=== PATIENT | female | born 1965 | race Caucasian/White ===

== ENCOUNTER 2019-10-02 17:37 | Observation (INO) | payer BC ==
[~2019-10-02] VITALS: Ht 167.6 cm; Wt 106.5 kg
[~2019-10-02 17:37] MED LIST: DIAZ5TAB PO; DICL100G15 TOP; HYDR-4383 PO; NAPR-1154 PO
[2019-10-02 18:29] LABS: BASOPHILS # (AUTO) 0.1 X10'3 (0-0.2); BASOPHILS % (AUTO) 0.5 % (0-1); EOSINOPHILS # (AUTO) 0.1 X10'3 (0-0.9); EOSINOPHILS % (AUTO) 1.1 % (0-6); HEMATOCRIT 42.4 % (35.0-45.0); HEMOGLOBIN 13.9 g/dl (12.0-16.0); MEAN CORPUSCULAR HEMOGLOBIN 28.7 PG (27.0-31.0); MEAN CORPUSCULAR HGB CONC 32.8 g/dL (33.0-36.5); MEAN CORPUSCULAR VOLUME 87.5 FL (78-98); MEAN PLATELET VOLUME 7.8 FL (7.4-10.4); MONOCYTES # (AUTO) 0.7 X10'3 (0-0.9); MONOCYTES % (AUTO) 6.5 % (2-12); NEUTROPHILS # (AUTO) 6.9 X10'3 (1.8-7.7); NEUTROPHILS % (AUTO) 63.9 % (42-75); PLATELET COUNT 329 X10'3 (140-440); RED BLOOD COUNT 4.84 X10'6 (4.20-5.60); RED CELL DISTRIBUTION WIDTH 14.9 % (11.5-14.5); WHITE BLOOD COUNT 10.7 X10'3 (4.5-11.0)
[2019-10-02 18:49] LABS: ALANINE AMINOTRANSFERASE 18 U/L (12-78); ALBUMIN 3.8 G/DL (3.4-5.0); ALBUMIN/GLOBULIN RATIO 0.8 (1.1-1.5); ALKALINE PHOSPHATASE 126 IU/L (46-116); ANION GAP 10 (8-16); ASPARTATE AMINO TRANSFERASE 10 U/L (10-37); BILIRUBIN,TOTAL 0.2 MG/DL (0.1-1.0); BLOOD UREA NITROGEN 15 MG/DL (7-18); BUN/CREATININE RATIO 14.3 (6.6-38.0); CALCIUM 8.9 MG/DL (8.5-10.1); CHLORIDE 101 MMOL/L (99-107); CREATININE 1.05 MG/DL (0.40-0.90); GLUCOSE 82 MG/DL (70-104); SODIUM 139 MMOL/L (135-145); TOTAL CARBON DIOXIDE 28.2 MMOL/L (24-32); TOTAL PROTEIN 8.4 G/DL (6.4-8.2); eGFR 54 ML/MIN
[2019-10-02 18:54] LABS: POTASSIUM 2.9 MMOL/L (3.5-5.1)
[2019-10-02] MEDS ORDERED: potassium chloride 10mEq ER tablet PO STA (19:41)
[2019-10-02] MEDS: normal saline 1000ml 1,000 ML IV SCH (21:52)
[2019-10-02] MEDS ORDERED: metoprolol tartrate 1mg/ml inj IV PRN (21:55)
[2019-10-02] MEDS ORDERED: potassium Cl 20 mEq SR tablet PO PRN ×2 (21:55)
[2019-10-02] MEDS ORDERED: regadenoson 0.4mg/5ml syringe IV PRN (21:55)
[2019-10-02] MEDS ORDERED: ondansetron/PF 4mg/2ml inj IV PRN (21:55)
[2019-10-02] MEDS ORDERED: magnesium 4gm in 100ml NS 100 ML IV PRN (21:55)
[2019-10-02] MEDS ORDERED: nitroGLYCERIN 0.4mg SUBLingual tab SL PRN (21:55)
[2019-10-02] MEDS ORDERED: potassium CL 10mEq/100ml bag 100 ML IV PRN ×2 (21:55)
[2019-10-02] MEDS ORDERED: acetaminophen 325mg tablet PO PRN (21:55)
[2019-10-02] MEDS ORDERED: mag hydrox/Alum hydrox/simeth 30ml oral suspension PO PRN (21:55)
[2019-10-02] MEDS ORDERED: aminophylline 250mg/10ml inj. IV PRN (21:55)
[2019-10-02] MEDS ORDERED: magnesium hydroxide 30ml (MOM) UD suspension PO PRN (21:55)
[2019-10-02] MEDS ORDERED: magnesium 2GM in 50ml NS 50 ML IV PRN (21:55)
[2019-10-02] MEDS ORDERED: NO HOME MEDS (22:23)
--- NOTE | 2019-10-02 22:49 | NUR ---
Patient in room ED 3. I have received report from Akua RICARDO and had the opportunity to ask questions and assume patient care.
--- NOTE | 2019-10-02 22:55 | NUR ---
Patient arrived on unit. Telemetry applied, MRSA swab obtained, two RN skin check done. vital signs obtained -79 HR,98.5, 93%, RR 20, 143/71 and no pain. Patient assessed and made comfortable. Will continue to assess and monitor closely.
[2019-10-03] VITALS (12 sets, daily range): BP systolic 131–159; BP diastolic 61–76
[2019-10-03 06:06] LABS: BASOPHILS % (AUTO) 0.6 % (0-1); EOSINOPHILS # (AUTO) 0.1 X10'3 (0-0.9); EOSINOPHILS % (AUTO) 1.3 % (0-6); HEMATOCRIT 39.4 % (35.0-45.0); HEMOGLOBIN 12.8 g/dl (12.0-16.0); LYMPHOCYTES # (AUTO) 2.2 X10'3 (1.1-4.8); LYMPHOCYTES % (AUTO) 31.7 % (21-51); MEAN CORPUSCULAR HGB CONC 32.4 g/dL (33.0-36.5); MEAN CORPUSCULAR VOLUME 86.2 FL (78-98); MEAN PLATELET VOLUME 7.8 FL (7.4-10.4); MONOCYTES # (AUTO) 0.5 X10'3 (0-0.9); NEUTROPHILS # (AUTO) 4.1 X10'3 (1.8-7.7); NEUTROPHILS % (AUTO) 59.4 % (42-75); PLATELET COUNT 279 X10'3 (140-440); RED BLOOD COUNT 4.57 X10'6 (4.20-5.60); RED CELL DISTRIBUTION WIDTH 14.6 % (11.5-14.5); WHITE BLOOD COUNT 6.9 X10'3 (4.5-11.0)
[2019-10-03 06:29] LABS: ALANINE AMINOTRANSFERASE 14 U/L (12-78); ALBUMIN 3.1 G/DL (3.4-5.0); ALBUMIN/GLOBULIN RATIO 0.8 (1.1-1.5); ALKALINE PHOSPHATASE 103 IU/L (46-116); ANION GAP 5 (8-16); ASPARTATE AMINO TRANSFERASE 9 U/L (10-37); BILIRUBIN,TOTAL 0.3 MG/DL (0.1-1.0); BLOOD UREA NITROGEN 14 MG/DL (7-18); BUN/CREATININE RATIO 16.9 (6.6-38.0); CALCIUM 8.6 MG/DL (8.5-10.1); CHLORIDE 107 MMOL/L (99-107); CREATININE 0.83 MG/DL (0.40-0.90); GLUCOSE 99 MG/DL (70-104); POTASSIUM 4.1 MMOL/L (3.5-5.1); SODIUM 141 MMOL/L (135-145); TOTAL CARBON DIOXIDE 29.4 MMOL/L (24-32); eGFR 71 ML/MIN
[2019-10-03 06:31] LABS: CHOL/HDL RATIO 3.8 (0.00-4.99); CHOLESTEROL 180 MG/DL (0-200); HDL CHOLESTEROL 48 MG/DL (35-60); LDL CHOLESTEROL 118 MG/DL (50-100); MAGNESIUM 2.4 MG/DL (1.5-2.4); TRIGLYCERIDES 72 MG/DL (20-135)
--- NOTE | 2019-10-03 06:37 | NUR ---
Problems reprioritized. Patient report given, questions answered & plan of care reviewed with Irene RICARDO.
[2019-10-03] MEDS: normal saline 1000ml 1,000 ML IV SCH (07:52)
[2019-10-03] MEDS ORDERED: enoxaparin 40mg/0.4ml syringe SQ SCH (08:00)
[2019-10-03] MEDS ORDERED: K and/or MAG REPLACEMENT MC SCH (08:00)
--- NOTE | 2019-10-03 12:06 | NUR ---
PAGER ID: [phone] MESSAGE: [id number] [address] Landeros Has no diet ordered. Stress test negative. LVEF 65%. May I order heart healthy diet? Irene [phone]
[2019-10-03] MEDS ORDERED: PANT40TA4 PO (12:40)
[2019-10-03] MEDS ORDERED: LISI-604 PO (12:43)
--- NOTE | 2019-10-03 15:26 | NUR ---
Per MD orders patient stable for discharge home. New prescriptions called in to pharmacy of preference. Discharge packet reviewed at bedside and all questions answered to patient satisfaction. PIV discontinued cannula intact. Tele monitoring discontinued. All belongings sent with patient. Ambulated to private vehicle accompanied by nurse on duty.
[2019-10-04] MEDS ORDERED: enoxaparin 30mg/0.3ml syringe SUBCUT SCH (08:00)
== END 2019-10-03 15:24 | disposition home or self-care (01) ==
LOC: ER 17:38 → ED HOLD 21:52 → PCU 3S 23:30
PROVIDERS: ADMIT Family Medicine; ATTEND Internal Medicine
DX: I47.2 Ventricular tachycardia (principal); E06.3 Autoimmune thyroiditis; E87.6 Hypokalemia; I49.3 Ventricular premature depolarization; I49.9 Cardiac arrhythmia, unspecified
CPT/HCPCS: 36415; 71045; 78452; 80053; 80061; 83735; 83880; 84443; 84484; 85025; 87081; 93005; 93017; 93306; 96372; 97161; 97530; 99285; A9500; G0378; J2785; J1650

== ENCOUNTER 2019-12-17 06:15 | Day surgery (SDC) | payer BC ==
[2019-12-17] VITALS (15 sets, daily range): BP systolic 121–173; BP diastolic 69–98
[~2019-12-17] VITALS: Ht 167.6 cm; Wt 108.3 kg
[~2019-12-17 06:15] MED LIST changes: -DIAZ5TAB PO; -DICL100G15 TOP; -HYDR-4383 PO; +LISI-604 PO; -NAPR-1154 PO; +PANT40TA54 PO
[2019-12-17] MEDS ORDERED: LORazepam 0.5 MG tablet PO PRN (06:40)
[2019-12-17] MEDS ORDERED: normal saline 1,000 ML IV SCH ×2 (06:40→10:15)
[2019-12-17] MEDS ORDERED: LIDOcaine/PRILOcaine 5gm cream TP ONE (06:40)
[2019-12-17] MEDS ORDERED: diphenhydrAMINE 25mg capsule PO PRN (06:40)
[2019-12-17] MEDS ORDERED: MULT-1133 (06:59)
[2019-12-17] MEDS ORDERED: [UNRECOGNIZED DRUG - CODE] (06:59)
[2019-12-17] MEDS ORDERED: CARV3.12 PO (06:59)
[2019-12-17] MEDS ORDERED: SUPER C COMPLEX (06:59)
[2019-12-17] MEDS ORDERED: CHOL100046 PO (06:59)
[2019-12-17 07:19] LABS: BASOPHILS % (AUTO) 0.6 % (0-1); EOSINOPHILS # (AUTO) 0.1 X10'3 (0-0.9); EOSINOPHILS % (AUTO) 1.9 % (0-6); HEMATOCRIT 40.9 % (35.0-45.0); HEMOGLOBIN 13.6 g/dl (12.0-16.0); LYMPHOCYTES # (AUTO) 1.7 X10'3 (1.1-4.8); LYMPHOCYTES % (AUTO) 27.9 % (21-51); MEAN CORPUSCULAR HEMOGLOBIN 28.5 PG (27.0-31.0); MEAN CORPUSCULAR HGB CONC 33.2 g/dL (33.0-36.5); MEAN CORPUSCULAR VOLUME 85.9 FL (78-98); MEAN PLATELET VOLUME 7.9 FL (7.4-10.4); MONOCYTES # (AUTO) 0.5 X10'3 (0-0.9); MONOCYTES % (AUTO) 8.7 % (2-12); NEUTROPHILS # (AUTO) 3.8 X10'3 (1.8-7.7); NEUTROPHILS % (AUTO) 60.9 % (42-75); PLATELET COUNT 298 X10'3 (140-440); RED BLOOD COUNT 4.76 X10'6 (4.20-5.60); RED CELL DISTRIBUTION WIDTH 14.6 % (11.5-14.5); WHITE BLOOD COUNT 6.2 X10'3 (4.5-11.0)
[2019-12-17 07:32] LABS: ALBUMIN 3.8 G/DL (3.4-5.0); BLOOD UREA NITROGEN 16 MG/DL (7-18); BUN/CREATININE RATIO 21.9 (6.6-38.0); CALCIUM 9.1 MG/DL (8.5-10.1); CREATININE 0.73 MG/DL (0.40-0.90); GLUCOSE 88 MG/DL (70-104); TOTAL CARBON DIOXIDE 27.4 MMOL/L (24-32); eGFR 82 ML/MIN
[2019-12-17 07:33] LABS: PARTIAL THROMBOPLASTIN TIME 28 SECONDS (22-32)
[2019-12-17 07:43] LABS: ANION GAP 9 (8-16); CHLORIDE 102 MMOL/L (99-107); POTASSIUM 3.6 MMOL/L (3.5-5.1); SODIUM 138 MMOL/L (135-145)
[2019-12-17] MEDS ORDERED: verapamil 2.5 mg/ml inj IV ONE (07:49)
[2019-12-17] MEDS ORDERED: nitroGLYCERIN-Tridil 50MG/D5W 250 ML IV ONE (07:50)
[2019-12-17] MEDS ORDERED: LIDOcaine 1% (10mg/ml)w/preservative injection 20ml MDV ONE (07:50)
[2019-12-17] MEDS ORDERED: heparin 1,000unit/ml 10ml vial 10 ML ONE (07:50)
[2019-12-17] MEDS ORDERED: iohexol 350MG/ML 100ml bottle IV ONE (07:50)
[2019-12-17] MEDS ORDERED: fentaNYL/PF 50MCG/1 ML 2ML syringe ONE ×2 (07:50→09:01)
[2019-12-17] MEDS ORDERED: midazolam 2 mg/2 ml injection ONE ×2 (07:50→08:44)
[2019-12-17] MEDS ORDERED: iohexol 350 MG/ML 50ML vial IV ONE ×2 (07:50→09:12)
[2019-12-17] MEDS ORDERED: heparin 1,000 UNITS/NS 500ml 500 ML ONE (09:05)
[2019-12-17] MEDS ORDERED: HYDROcodone/acetaminophen 5mg/325mg tablet PO PRN (10:15)
[2019-12-17] MEDS: HYDROcodone/acetaminophen 10/325mg tab PO PRN ×2 (12:31→16:26)
[2019-12-17] MEDS ORDERED: ACETYLCYSTEINE 200 MG/1 ML 4 ML ORAL SOLUTION PO SCH (14:05)
--- NOTE | 2019-12-17 14:38 | NUR ---
Problems reprioritized. Patient report given, questions answered & plan of care reviewed with ANTONI RICARDO.
[2019-12-17] MEDS ORDERED: carvedilol 6.25mg tablet PO SCH (16:00)
== END 2019-12-17 17:48 | disposition home or self-care (01) ==
LOC: SSTAY O 06:15
PROVIDERS: ATTEND Internal Medicine Cardiovascular Disease
DX: R53.83 Other fatigue (principal); R06.02 Shortness of breath; I25.10 Atherosclerotic heart disease of native coronary artery without angina pectoris; I10 Essential (primary) hypertension; E78.5 Hyperlipidemia, unspecified; E66.9 Obesity, unspecified; Z68.38 Body mass index [BMI] 38.0-38.9, adult; Z79.899 Other long term (current) drug therapy
CPT/HCPCS: 36415; 76937; 80048; 85025; 85610; 85730; 93005; 93460; 93567; 99152; 99153; C1751; C1769; C1894; J1644; J2001; J2250; J3010; J7030; Q0163; Q9967; 93458; A4620; A5120; A6258; J3490

== ENCOUNTER 2020-01-03 14:28 | Emergency (ER) | payer BC ==
[~2020-01-03] VITALS: Ht 167.6 cm; Wt 105.0 kg
[~2020-01-03 14:28] MED LIST changes: +CARV3.12 PO; +CHOL100046 PO; -LISI-604 PO; +MULT-1133; -PANT40TA54 PO; +SUPER C COMPLEX; +[UNRECOGNIZED DRUG - CODE]
[2020-01-03] MEDS ORDERED: furosemide 20MG tablet PO ONE (17:55)
[2020-01-03] MEDS ORDERED: FURO-150 PO (18:04)
[2020-01-03 18:11] VITALS: BP 159/82
== END 2020-01-03 18:17 | disposition home or self-care (01) ==
LOC: ER 14:30
DX: R22.41 Localized swelling, mass and lump, right lower limb (principal); R06.02 Shortness of breath; Z79.899 Other long term (current) drug therapy
CPT/HCPCS: 93971; 99285

== ENCOUNTER 2025-01-01 10:19 | Emergency (ER) | payer BC ==
[~2025-01-01] VITALS: Ht 167.6 cm; Wt 102.3 kg
[2025-01-01 10:24] VITALS: TEMP 97.6
--- NOTE | 2025-01-01 11:03 | Physician Documentation ---
History of Present Illness ~ Chief Complaint: Knee Pain Stated Complaint: BLOOD CLOT RULE OUT L KNEE Time Seen by MD: 10:50 Primary Medical Doctor: KIMMY RUEDA This is a 59-year-old female who presents with worsening left medial knee pain and swelling and tenderness to left calf, patient contacted a doctor about her knee who has concern for DVT and as patient to present to the emergency department. Patient reports feeling otherwise well though reports knee pain is quite severe. Tetanus witin 5 years: No Medication Reconciliation Allergies: Coded Allergies: No Known Allergies (Unverified , 01/01/25) Scheduled Carvedilol (Coreg), 1 TAB PO Q12H, (Reported) Cholecalciferol (Vitamin D3) (Vitamin D3), 1 CAP PO DAILY, (Reported) Scheduled PRN Hydrocodone Bit/Acetaminophen 5/325 MG (Eunice 5/325 MG), 1 TAB PO Q6H PRN for pain Miscellaneous Medications Ascorbic Acid/Multivit-Min (Emergen-C Immune Plus Packet), (Reported) Multivits-Min/Iron/FA/Lutein (Centrum Silver Women Tablet), (Reported) [Super C Complex], (Reported) Past Medical History Past Medical History: No Pertinent History Past Surgical History: no surgical history Patient History: FH: lung cancer maternal grandmother FH: stroke maternal grandmother Alcohol Use: None Drug Use: none Lives with: Family Lives In: Home Occupation: employed Review of Systems ROS As stated above in the HPI, otherwise all systems are reviewed and negative. Physical Exam Vital Signs: Temperature: 97.6, Source: Temporal, Heart Rate: 80, Respiratory Rate: 18, BP: 156/71, Pulse Oximetry: 98, Weight: 102.270 Physical Exam VITALS: Reviewed and as above. GENERAL: Alert, nontoxic appearing, no apparent distress. RESPIRATORY: No increased work of breathing, no respiratory distress, speaking in full clear sentences CV: Left pedal pulse intact MUSCULOSKELETAL: Tenderness to left medial knee, left lateral knee nontender, left calf slightly more swollen than right, left calf tender NEURO: Sensation intact to left foot Progress Results/Orders Results/Orders Orders - ROSIE REYEZ Vl Venous (01/01/25 11:03) Ortho Orders (01/01/25 14:02) Completed Orders - ROSIE REYEZ Hydrocodone/Apap 5/325mg Tab (Eunice 5/32 (01/01/25 11:05) Vl Venous (01/01/25 11:03) Ondansetron Disint. Tablet (Zofran Odt T (01/01/25 11:05) Hydrocodone/Apap 5/325mg Tab (Eunice 5/32 (01/01/25 14:20) Medications Received in ER Medications (Trade) Dose Ordered Sig/Meg Route PRN Reason Start Time Stop Time Status Last Admin Dose Admin (Eunice 5/325mg tablet) 1 tab ONCE ONCE PO 01/01/25 14:20 01/01/25 14:21 DC 01/01/25 14:35 1 TAB Vital Signs 01/01/25 01/01/25 01/01/25 01/01/25 10:24 11:13 12:16 14:35 Temp 97.6 Pulse 80 Resp 18 18 18 18 B/P (MAP) 156/71 Pulse Ox 98 01/01/25 14:40 Pulse 75 Resp 18 B/P (MAP) 145/76 Pulse Ox 100 EKG/XRAY/CT/US/VASC/MRI Vascular : Impression Technologist: Shanae Hernandez Technique: Real-time ultrasound imaging, with color Doppler and compression of the left common femoral vein, femoral vein, greater saphenous vein, and popliteal vein. Indication: Pain in the left knee Comparison: None Findings: There is normal compressibility and flow augmentation in all of the imaged deep veins. There are no filling defects. Left tao's cyst measuring 1.7 x 0.6 x 1.4 cm. The right common femoral vein is compressible. Impression: No evidence of DVT in the left lower extremity Left Tao's cyst. Dictated by:ROSALIA DAVENPORT MD Dictation date and time:01/01/251345 Electronically Signed by: ROSALIA DAVENPORT MD Date and Time: 01/01/251345 Transcribed: [facility] Medical Decision Making Additional information obtaine: N/A Findings This 59-year-old female presented with three days of left knee pain and left lower extremity swelling calf tenderness, physical exam significant for lateral knee tenderness and posterior calf tenderness with mild swelling of the left lower extremities compared to the right, is reassuring limb was neurovascularly intact. Vascular ultrasound did not demonstrate evidence of DVT however a Tao's cyst was found. Considering patient's past knee pain and onset of sym ptoms with activity suspect soft tissue injury, patient has not appointment on Monday to follow up with an orthopedist. Patient medicated for pain and discharged with short course of Eunice for severe knee pain. Patient is otherwise well-appearing and appropriate for outpatient follow up. Patient provided home care instructions, follow up instructions, and return to care precautions which she verbalized understanding of. I have discussed with the patient the risks of addiction and overdose associated with use of opioids, including the increased risk of addiction to an opioid for an individual who is suffering from both mental and substance abuse disorders. I have discussed with the patient the danger of taking an opioid with a benzodiazepine, alcohol, or another central nervous system depressant. General Diff Dx:Considerations: Include: Laceration, Neurovascular injury, Sprain, Other (Cellulitis, DVT, PE) Knee Diff Dx:Considerations: Include: Abrasion, DJD, Fracture-femur, Fracture- fibula, Fracture-patella, Fracture-tibia, Gout, Hematoma, Meniscus injury, Neurovascular injury, Septic, Sprain Ankle Diff Dx:Considerations: Unlikely: Abrasion, Arthritis, Contusion, DJD, Fracture-metatarsal, Fracture-fibula, Fracture-tarsal, Fracture-tibia, Gout, Hematoma, Laceration, Malunion, Neurovascular injury, Nonunion, Open fracture, Osteomyelitis, Rheumatoid arthritis, Sprain, Septic, Ulcer, Other Foot Diff Dx:Considerations: Unlikely: Abrasion, Arthritis, Cellulitis, Contusion, Dislocation, DJD, Fracture-metatarsal, Fracture-phalynx, Fracture- tarsal, Gout, Hematoma, Ingrown toenail, Laceration, Malunion, Neurovascular injury, Open fracture, Paronychia, Puncture, Rheumatoid, Sprain, Septic, Subungual hematoma, Ulcer, Other Toe Diff Dx:Considerations: Unlikely: Abrasion, Cellulitis, Contusion, Dislocation, Felon, Fracture, Hematoma, Laceration, Neurovascular injury, Open fracture, Paronychia, Subungual hematoma, Other Departure Time of Disposition: 14:19 Disposition: 01 HOME / SELF CARE / HOMELESS Impression: Primary Impression: Knee pain Qualified Codes: M25.562 - Pain in left knee Condition: Improved Discharge Instructions: Acute Knee Pain, Adult Additional Instructions: There was no blood clot found, there was a Tao's cyst found which may explain the swelling in your leg, please follow up with the primary care provider for management of Tao's cyst. Please follow up with your doctor as scheduled for your knee pain. Please use provided crutches to rest your knee. Please follow up with your primary care provider in the next few days. Please return to the emergency department for any new or worsening concerning symptoms. You may use [id number] ibuprofen and or Tylenol as needed for pain as directed by the [id number] packaging. For breakthrough pain you may use the prescribed Eunice, be aware that the Eunice also contains the same active ingredient as Tylenol, so do not take more than the recommended amount of Tylenol as directed on the [id number] packaging. You have been prescribed an opioid medication, there are risks of addiction and overdose associated with the use of opioids. The risk of addiction to an opioid for increases for those suffering both from mental health and substance use disorders. The use of an opioid while taking other central nervous system depressants including but not limited to benzodiazepines or alcohol, or other opioids increases the risk of serious side effects that can include overdose or respiratory depression that can lead to serious injury or . Referrals: NO PRIMARY CARE PROVIDER (PCP) Prescriptions Hydrocodone Bit/Acetaminophen 5/325 MG (Eunice 5/325 MG) 5 Mg/325 Mg Tablet 1 TAB PO Q6H PRN for pain for 3 Days, #12 TAB Prov: ROSIE REYEZ 01/01/25 Education Educated: Patient Educated regarding: diagnosis, treatment, prognosis, need for follow up Signature Scribe Signature: No scribe Attestation: The note accurately reflects work and decisions made by me.LUCINDA Power 01/01/25 20:43 Parts of this note were created using [employer] voice recognition software program. While efforts were made to correct any mistakes made by this voice recognition software program, nonsensical phrases may remain in this note. In addition, there may be errors and syntax, grammar, content and spelling. ROSIE REYEZ Jan 01, 2025 11:03
[2025-01-01] MEDS: HYDROcodone/acetaminophen 5mg/325mg tablet PO ONE ×2 (11:13→14:35)
[2025-01-01] MEDS: ondansetron 4mg rapidly disintigrating tab PO PRN (11:14)
--- NOTE | 2025-01-01 13:44 | VASCULAR REPORT ---
Technique: Real-time ultrasound imaging, with color Doppler and compression of the left common femoral vein, femoral vein, greater saphenous vein, and popliteal vein. Indication: Pain in the left knee Comparison: None Findings: There is normal compressibility and flow augmentation in all of the imaged deep veins. There are no filling defects. Left tao's cyst measuring 1.7 x 0.6 x 1.4 cm. The right common femoral vein is compressible. Impression: No evidence of DVT in the left lower extremity Left Tao's cyst.
[2025-01-01] MEDS ORDERED: HYDR-3965 PO (14:21)
[2025-01-01 14:40] VITALS: BP 145/76; PULSE 75; RESP 18; O2SAT 100
== END 2025-01-01 14:42 | disposition home or self-care (01) ==
LOC: ER 10:20
DX: M25.562 Pain in left knee (principal); Z79.899 Other long term (current) drug therapy
CPT/HCPCS: 93971; 99284